=== PATIENT | female | born 1965 | race Caucasian/White ===

== ENCOUNTER 2023-10-27 19:13 | Emergency (ER) | payer MEDICARE, BC, SELFPAY ==
--- NOTE | ~2023-10-27 | XR_ITS ---
EXAMINATION: XR LUMBOSACRAL SPINE CLINICAL INFORMATION: Lower back pain COMPARISON: None available. TECHNIQUE: Three views of the lumbosacral spine. FINDINGS: Laminectomy changes noted L3 to L5 with posterior fusion changes. Hardware appears satisfactory without evidence of failure. Moderate scoliosis convex right. No fracture. Generalized endplate spurring consistent with degenerative disc disease. XR/XR lumbar spine 2-3V IMPRESSION: No acute findings. Postsurgical changes as above.
[2023-10-27 19:45] VITALS: BP 134/89; PULSE 85; RESP 16; TEMP 36.5; O2SAT 98; BMI 28.3
--- NOTE | 2023-10-27 19:45 | ED_ITS ---
HPI - Back Pain/Injury General Chief Complaint: Back Pain/Injury Stated Complaint: back pain Time Seen by Provider: 10/27/23 21:52 Source: patient and family Mode of arrival: ambulatory Limitations: no limitations History of Present Illness ED Provider: Dr. Wayne HPI Narrative: patient with a long history of back problems, has had a lot of hardware in lumbar spine from laminectomy. Now with left lumbar pain radiating down to thigh. She denies injury. MD elicited complaint: back pain Pertinent past history: prior back pain Onset (ago): day(s) Related Data Previous Rx's ?Medication ?Instructions ?Recorded cyclobenzaprine 10 mg tablet 10 mg PO TID #10 tabs 10/27/23 Allergies Allergy/AdvReac Type Severity Reaction Status Date / Time NSAIDS (Non-Steroidal Allergy Unknown Verified 10/27/23 19:46 Anti-Inflamma Review of Systems Review of Systems: Yes all other systems are reviewed and are negative Neurologic: Denies Sensory deficit (Neuro) [facility] Social History Social History Advance Directives: No Advance Directives Information Provided: No Do you have a plan to hurt others: No Plan Physical Exam Vital Signs: Vital Signs: Last Vital Signs Temp 97.7 F 10/27/23 19:45 Pulse 85 10/27/23 19:45 Resp 16 10/27/23 19:45 BP 134/89 10/27/23 19:45 Pulse Ox 98 10/27/23 19:45 O2 Del Method Room Air 10/27/23 19:45 BMI result Body Mass Index 28.3 Const: General: healthy appearing Nutritional Appearance: average body habitus Orientation/consciousness: oriented to person and patient oriented x3 Limitations: no limitations HEENT: Head: Yes normal to inspection Ears: external ears normal General nose exam: Normal external nose present Mouth: Normal oral and palatal mucosa present and oropharynx normal Throat: Yes posterior oropharynx normal Eyes: General: appearance normal, both eyes and all related structures Neck: Other: supple Neck: Yes normal visual inspection Chest: Chest palpation & inspection: normal inspection of the chest Resp: Auscultation: clear to auscultation bilaterally Cardio: Jugular venous distension: no JVD Rate: regular rate Rhythm: regular rhythm Heart sounds: S1 normal heart sound present and S2 normal heart sound present GI: Inspection: Yes normal to inspection Palpation (GI): Soft to palpation, nontender and No hepatosplenomegaly present Auscultation: normal bowel sounds Back/Spine/Pelvis: Other: left SI joint and sciatic notch pain Skin: General skin exam: no rashes or lesions noted Neuro: General: oriented to person and patient oriented x3 Cranial nerves: Yes CN's II-XII intact bilaterally Motor exam (neuro): 5/5 motor strength present throughout Sensory Exam: No Sensory deficit (Neuro) Extrem: General: Yes normal to inspection Psych: Appearance: grossly normal Course Course Course Narrative: This is a Rapid Medical Exam performed in triage by Sulema Caceres PA-C. Full HPI, ROS and PE to be performed by primary ED provider. 57 year-old F w/ PMHx back surgery '19 presenting to the ED c/o lower back pain x2 days w/radiation down LLE. denies injury/heavy lifting, urinary sx. Taking Motrin & meloxicam for pain PE: Ambulating with antalgic gait. + midline and bilateral lumbar paraspinal tenderness Plan: X-ray, pain control Reevaluation(s) Reevaluation #1: patient with inflammed SI joint and sciatica. Will give toradol shot, have patient continue mobic and add flexeril Time: 22:05 Medical Decision Making Differential Diagnosis Differential Diagnoses: The differential diagnosis associated with the presentation includes (lumbar pain, sciatica, sacroiliac joint pain) Independent Interpretation I performed an independent interpretation of an: Plain X-Ray (lumbar: old djd hardware in place) Tests considered The following testing was considered but not selected: MRI of lumbar spine considered but patient without focal deficits Discharge Plan Discharge Clinical Impression: Lumbar radiculopathy, Sciatica Patient Disposition: Home, Self-Care Instructions: Sciatica (ED), Acute Low Back Pain (ED), Lumbar Radiculopathy (ED) Prescriptions: New cyclobenzaprine 10 mg tablet 10 mg PO TID Qty: 10 0RF Referrals: Riri Bettencourt MD [Primary Care Provider] - 1 week Print Language: [place]ijani
[2023-10-27] MEDS: Cyclobenzaprine HCl 10 MG TABLET PO (22:30)
[2023-10-27 22:38] VITALS: BP 112/77; PULSE 77; RESP 18; TEMP 36.4; O2SAT 100
[2023-10-28 00:17] VITALS: BP 112/77; PULSE 77; RESP 18; TEMP 36.4; O2SAT 100
== END 2023-10-27 22:42 | disposition home or self-care (01) ==
PROVIDERS: Emergency Provider Emergency Medicine; PCP Student in an Organized Health Care Education/Training Program
DX: M54.16 Radiculopathy, lumbar region (principal); M54.42 Lumbago with sciatica, left side
CPT/HCPCS: 72100; 99283; 99284